=== PATIENT | male | born 1980 | race Caucasian/White ===

== ENCOUNTER 2020-07-27 01:27 | Emergency (ER) | payer SELFPAY ==
[2020-07-27] MEDS ORDERED: cloNIDine 0.1 MG TAB ONE (01:52)
[2020-07-27] MEDS ORDERED: Ondansetron PF 4 MG/2 ML Vial ONE (01:52)
== END 2020-07-27 02:05 | disposition home or self-care (01) ==
LOC: MADERS 01:27
DX: F11.93 Opioid use, unspecified with withdrawal (principal); I10 Essential (primary) hypertension; F17.210 Nicotine dependence, cigarettes, uncomplicated; F17.220 Nicotine dependence, chewing tobacco, uncomplicated; Z79.899 Other long term (current) drug therapy
CPT/HCPCS: 96374; J2405